=== PATIENT | male | born 1980 | race African-American/Black ===

== ENCOUNTER 2023-12-26 10:24 | Emergency (ER) | payer SELFPAY ==
[~2023-12-26] VITALS: Ht 170.2 cm; Wt 87.0 kg
[2023-12-26 11:03] VITALS: O2SAT 100
[2023-12-26] MEDS ORDERED: IBUP-2029 MT (12:51)
[2023-12-26] MEDS ORDERED: CYCL10TA21 MT (12:51)
[2023-12-26 13:43] VITALS: BP 134/80; PULSE 78; RESP 12; TEMP 36.83628; O2SAT 100
== END 2023-12-26 13:35 | disposition home or self-care (01) ==
LOC: ER 10:33
DX: S20.211A Contusion of right front wall of thorax, initial encounter (principal); X58.XXXA Exposure to other specified factors, initial encounter; Y93.89 Activity, other specified; Y92.89 Other specified places as the place of occurrence of the external cause; Y99.8 Other external cause status
CPT/HCPCS: 99283